=== PATIENT | female | born 1985 | race Caucasian/White ===

== ENCOUNTER 2017-04-25 08:49 | Inpatient (IN) | payer BC ==
[~2017-04-25] VITALS: Ht 165.1 cm; Wt 55.1 kg
[2017-04-25] MEDS ORDERED: ONDANSETRON INJ 2 MG/ML 2 ML VIAL IV STA (09:09)
[2017-04-25] MEDS ORDERED: HYDROmorphone INJ 1 MG/ML SYR IV STA (09:09)
[2017-04-25] MEDS ORDERED: SODIUM CHLORIDE 0.9% 1000ML 1,000 ML IV STA (09:10)
[2017-04-25] MEDS ORDERED: OPTIRAY 320 IV PRN (09:15)
[2017-04-25] MEDS ORDERED: AZAT50TA17 PO (09:21)
[2017-04-25] MEDS ORDERED: BCPILLS PO (09:21)
[2017-04-25 09:28] LABS: BASO % 0.1 %; BASO ABS # 0.02 K/uL (0-0.2); EOS % 0.1 %; EOS ABS # 0.02 K/uL (0-0.5); HEMATOCRIT 36.9 % (37-47); HEMOGLOBIN 12.5 g/dL (12.0-16.0); IG# 0.09 K/uL (0.00-0.02); LYMPH % 2.1 %; LYMPH ABS # 0.41 K/uL (1.2-3.4); MEAN CELL VOLUME 84.8 fL (80-100); MEAN CORPUSCULAR HEMOGLOBIN 28.7 pg (25-34); MEAN CORPUSCULAR HGB CONC 33.9 g/dl (32-36); MEAN PLATELET VOLUME 8.4 fL (7.4-10.4); MONO % 5.5 %; NEUT % 91.7 %; NEUT ABS # 18.27 K/uL (1.4-6.5); PLATELET COUNT 421 K/uL (130-400); RED CELL DISTRIBUTION WIDTH CV 13.5 % (11.5-14.5); RED CELL DISTRIBUTION WIDTH SD 41.4 fL (36.4-46.3); WHITE BLOOD COUNT 19.91 K/uL (4.8-10.8)
--- NOTE | 2017-04-25 09:37 | DIAGNOSTIC IMAGING REPORT ---
CHEST ONE VIEW PORTABLE CLINICAL HISTORY: Pt c/o diffuse abd pain pain COMPARISON STUDY: No previous studies for comparison. FINDINGS: The bones soft tissues and hemidiaphragms are normal. The cardiomediastinal silhouette is normal. The lungs are clear. The pulmonary vasculature is normal. IMPRESSION: Negative chest. The above report was generated using voice recognition software. It may contain grammatical, syntax or spelling errors. Electronically signed by: Boogie De Jesus M.D. 04/25/2017 9:36 AM Dictated Date/Time: 04/25/2017 9:35 AM
[2017-04-25 09:58] LABS: ALBUMIN 3.1 gm/dl (3.4-5.0); CALCIUM 8.9 mg/dl (8.5-10.1); CREATININE 0.72 mg/dl (0.60-1.20); POTASSIUM 3.4 mmol/L (3.5-5.1); TOTAL PROTEIN 8.4 gm/dl (6.4-8.2)
--- NOTE | 2017-04-25 12:16 | DIAGNOSTIC IMAGING REPORT ---
CT SCAN OF THE ABDOMEN AND PELVIS WITH IV CONTRAST CLINICAL HISTORY: Generalized abdominal pain. Reported history of Crohn's disease. COMPARISON STUDY: No priors. TECHNIQUE: Following the IV administration of 94 cc of Optiray 320, CT scan of the abdomen and pelvis is performed from the lung bases to the proximal femora. Images are reviewed in the axial, sagittal, and coronal planes. IV contrast was administered without complication. A dose lowering technique was utilized adhering to the principles of ALARA. CT DOSE: 294.02 mGy.cm FINDINGS: Lung bases: The heart is normal in size and without pericardial effusion. There are trace pleural effusions and dependent atelectasis. Liver: The contrast-enhanced liver is enlarged, measuring 23.8 cm in length. The liver is normal in contour and attenuation. Periportal edema is noted. There is no intrahepatic biliary ductal dilatation. The hepatic veins and portal veins are patent. Gallbladder: Unremarkable. Spleen: Normal in size and attenuation. Pancreas: Unremarkable. Adrenal glands: Unremarkable. Kidneys: The contrast enhanced kidneys are normal in size and without hydronephrosis. The kidneys enhance symmetrically. A 9 mm cortical hypodensity in the left kidney likely represents a cyst but is too small for definitive characterization. Abdominal vasculature: The abdominal aorta is normal in course and caliber. Bowel: Extensive inflammatory change is identified in the right lower quadrant. There is wall thickening and edema with surrounding inflammation identified involving the distal/terminal ileum as well as involving the adjacent cecum. This is best seen on image #329. The care is most suggestive of active Crohn's disease. There is an abnormal tract seen extending from the ileocecal junction to an adjacent loop of small bowel on axial image #306. 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 Wall thickening/inflammatory change is also seen involving additional small bowel loops in the right lower quadrant. There is moderate colonic fecal retention. No bowel obstruction is seen. The appendix is identified on axial image #337. The appendix appears mildly distended and fluid-filled, with thickening and hyperemia of the appendiceal wall. The appendix measures up to 9 mm. This is likely related to the adjacent inflammatory process in the cecum. No clear evidence of abscess is identified. Peritoneum: There is no intraperitoneal free air or abdominal ascites. There is a small fat-containing umbilical hernia. Lymphadenopathy: Enlarged mesenteric lymph nodes in the right lower quadrant measure up to 10 mm in short axis and are likely related to inflammation. Pelvic viscera: The bladder, uterus, and adnexa are normal as visualized. Small ovarian follicles are noted. There is a small volume of free fluid in the cul-de-sac. Skeletal structures: No lytic or blastic lesions are seen. IMPRESSION: 1. There is significant inflammatory change identified in the right lower quadrant, which appear to center around the terminal ileum and ileocecal junction. This likely represents active Crohn's disease given the patient's reported clinical history. 2. 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 3. No intraperitoneal free air or abscess is clearly identified. 4. Inflammatory change is also identified involving adjacent loops of small bowel in the right lower quadrant as well as the appendix. 5. There is a small volume of free fluid in the cul-de-sac. 6. No bowel obstruction is seen. 7. Hepatomegaly. 8. Trace pleural effusions. Findings were discussed with Dr. Rodriguez in the emergency department at the time of interpretation. Electronically signed by: Rudy Mccollum M.D. 04/25/2017 12:15 PM Dictated Date/Time: 04/25/2017 11:59 AM
[2017-04-25] MEDS ORDERED: METOCLOPRAMIDE HCL INJ 5 MG/ML 2 ML VIAL IV STA (12:50)
[2017-04-25] MEDS ORDERED: MoRPHine SULFATE 4 MG/ML 1 ML CARP\\VIAL IV STA (12:50)
[2017-04-25] MEDS ORDERED: METHYLPREDNISOLONE 125 MG VIAL IV STA (13:09)
[2017-04-25] MEDS ORDERED: POTASSIUM CHLORIDE 20 MEQ/15 ML UDC PO STA (13:09)
[2017-04-25] MEDS ORDERED: CEFTRIAXONE SOD INJ 1 GM ADDVIAL IV STA (13:09)
[2017-04-25] MEDS ORDERED: DAPTOmycin IV 330 MG in SODIUM CHLORIDE 0.9% 50ML 50 ML IV STA (13:09)
--- NOTE | 2017-04-25 14:08 | EMERGENCY ROOM VISIT NOTE ---
History Report prepared by Derik: Jones Buitrago Under the Supervision of: Dr. Lamin Rodriguez M.D. First contact with patient: 09:03 Chief Complaint: ABDOMINAL PAIN Stated Complaint: STOMACH PAIN Nursing Triage Summary: Pt states, "I had an emergency procedure last week with Dr. Rodrigez. He basically did a colonoscopy without the prep. He thinks I am having a flare because he doesn't know because he couldn't get up higher. I am on steroids so the pain had gone away and it came back yesterday." Upper abd pain since last week. Denies n/v/d/c. Hx of Crohn's. History of Present Illness The patient is a 32 year old female who presents to the Emergency Room with complaints of epigastric abdominal pain beginning a few days ago. The patient describes her pain as a "constant uneasiness". She has a history of Crohn's disease. She states that she has had GI bleeding for the past two months which worsened last week prompting an emergent procedure. The patient states that her current abdominal pain feels similar to pain she was experiencing prior to the procedure, except that her pain was previously intermittent. She was prescribed Prednisone following the procedure. She took two doses of Prednisone this morning. Source of History: patient Onset: A few days ago Position: abdomen (epigastric) Quality: other ("uneasiness") Timing: constant Note: Additional symptoms: GI bleeding. Review of Systems See HPI for pertinent positives & negatives. A total of 10 systems reviewed and were otherwise negative. Past Medical & Surgical Medical Problems: (1) Crohn's disease (2) Crohn's disease involving terminal ileum Family History No pertinent family history stated. Social History Smoking Status: Never Smoker Current/Historical Medications Scheduled Azathioprine (Imuran), 100 MG PO DAILY Control Pills ( Control Pills), 1 TAB PO DAILY Allergies Coded Allergies: Amoxicillin (Verified Allergy, Unknown, ., 04/25/17) Cefaclor (Verified Allergy, Unknown, ., 04/25/17) Clavulanic Acid (Verified Allergy, Unknown, ., 04/25/17) Sulfamethoxazole w/Trimethoprim (Verified Allergy, Unknown, ., 04/25/17) Physical Exam Vital Signs Date Time Temp Pulse Resp B/P (MAP) Pulse Ox O2 Delivery O2 Flow Rate FiO2 04/25/17 15:15 75 17 106/63 97 Room Air 04/25/17 12:55 78 18 102/61 96 Room Air 04/25/17 11:00 86 18 102/59 97 Room Air 04/25/17 09:45 99 04/25/17 08:53 36.8 120 18 135/82 96 Room Air Physical Exam GENERAL: Awake, alert, well-appearing, in no acute distress HENT: Normocephalic, atraumatic. Oropharynx unremarkable. EYES: Normal conjunctiva. Sclera non-icteric. NECK: Supple. No nuchal rigidity. FROM. No JVD. RESPIRATORY: Clear to auscultation. CARDIAC: Regular rate, normal rhythm. Extremities warm and well perfused. Pulses equal. ABDOMEN: Soft, non-distended. Diffusely tender to palpation. No rebound or guarding. No masses. RECTAL: Deferred. MUSCULOSKELETAL: Chest examination reveals no tenderness. The back is symmetrical on inspection without obvious abnormality. There is no CVA tenderness to palpation. No joint edema. LOWER EXTREMITIES: Calves are equal size bilaterally and non-tender. No edema. No discoloration. NEURO: Normal sensorium. No sensory or motor deficits noted. SKIN: No rash or jaundice noted. Medical Decision & Procedures ER Provider Diagnostic Interpretation: Radiology results as stated below per my review and radiologist interpretation: CT SCAN OF THE ABDOMEN AND PELVIS WITH IV CONTRAST FINDINGS: Lung bases: The heart is normal in size and without pericardial effusion. There are trace pleural effusions and dependent atelectasis. Liver: The contrast-enhanced liver is enlarged, measuring 23.8 cm in length. The liver is normal in contour and attenuation. Periportal edema is noted. There is no intrahepatic biliary ductal dilatation. The hepatic veins and portal veins are patent. Gallbladder: Unremarkable. Spleen: Normal in size and attenuation. Pancreas: Unremarkable. Adrenal glands: Unremarkable. Kidneys: The contrast enhanced kidneys are normal in size and without hydronephrosis. The kidneys enhance symmetrically. A 9 mm cortical hypodensity in the left kidney likely represents a cyst but is too small for definitive characterization. Abdominal vasculature: The abdominal aorta is normal in course and caliber. Bowel: Extensive inflammatory change is identified in the right lower quadrant. There is wall thickening and edema with surrounding inflammation identified involving the distal/terminal ileum as well as involving the adjacent cecum. This is best seen on image #329. The care is most suggestive of active Crohn's disease. There is an abnormal tract seen extending from the ileocecal junction to an adjacent loop of small bowel on axial image #306. 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 Wall thickening/inflammatory change is also seen involving additional small bowel loops in the right lower quadrant. There is moderate colonic fecal retention. No bowel obstruction is seen. The appendix is identified on axial image #337. The appendix appears mildly distended and fluid-filled, with thickening and hyperemia of the appendiceal wall. The appendix measures up to 9 mm. This is likely related to the adjacent inflammatory process in the cecum. No clear evidence of abscess is identified. Peritoneum: There is no intraperitoneal free air or abdominal ascites. There is a small fat-containing umbilical hernia. Lymphadenopathy: Enlarged mesenteric lymph nodes in the right lower quadrant measure up to 10 mm in short axis and are likely related to inflammation. Pelvic viscera: The bladder, uterus, and adnexa are normal as visualized. Small ovarian follicles are noted. There is a small volume of free fluid in the cul-de-sac. Skeletal structures: No lytic or blastic lesions are seen. IMPRESSION: 1. There is significant inflammatory change identified in the right lower quadrant, which appear to center around the terminal ileum and ileocecal junction. This likely represents active Crohn's disease given the patient's reported clinical history. 2. 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 3. No intraperitoneal free air or abscess is clearly identified. 4. Inflammatory change is also identified involving adjacent loops of small bowel in the right lower quadrant as well as the appendix. 5. There is a small volume of free fluid in the cul-de-sac. 6. No bowel obstruction is seen. 7. Hepatomegaly. 8. Trace pleural effusions. Findings were discussed with Dr. Rodriguez in the emergency department at the time of interpretation. Electronically signed by: Rudy Mccollum M.D. 04/25/2017 12:15 PM CHEST ONE VIEW PORTABLE FINDINGS: The bones soft tissues and hemidiaphragms are normal. The cardiomediastinal silhouette is normal. The lungs are clear. The pulmonary vasculature is normal. IMPRESSION: Negative chest. The above report was generated using voice recognition software. It may contain grammatical, syntax or spelling errors. Electronically signed by: Boogie De Jesus M.D. 04/25/2017 9:36 AM Laboratory Results 04/25/17 09:16 Red Blood Count 4.35, Mean Corpuscular Volume 84.8, Mean Corpuscular Hemoglobin 28.7, Mean Corpuscular Hemoglobin Concent 33.9, Mean Platelet Volume 8.4, Neutrophils (%) (Auto) 91.7, Lymphocytes (%) (Auto) 2.1, Monocytes (%) (Auto) 5.5, Eosinophils (%) (Auto) 0.1, Basophils (%) (Auto) 0.1, Neutrophils # (Auto) 18.27, Lymphocytes # (Auto) 0.41, Monocytes # (Auto) 1.10, Eosinophils # (Auto) 0.02, Basophils # (Auto) 0.02 04/25/17 09:16 Test 04/25/17 09:16 White Blood Count 19.91 K/uL (4.8-10.8) Red Blood Count 4.35 M/uL (4.2-5.4) Hemoglobin 12.5 g/dL (12.0-16.0) Hematocrit 36.9 % (37-47) Mean Corpuscular Volume 84.8 fL (80-100) Mean Corpuscular Hemoglobin 28.7 pg (25-34) Mean Corpuscular Hemoglobin Concent 33.9 g/dl (32-36) Platelet Count 421 K/uL (130-400) Mean Platelet Volume 8.4 fL (7.4-10.4) Neutrophils (%) (Auto) 91.7 % Lymphocytes (%) (Auto) 2.1 % Monocytes (%) (Auto) 5.5 % Eosinophils (%) (Auto) 0.1 % Basophils (%) (Auto) 0.1 % Neutrophils # (Auto) 18.27 K/uL (1.4-6.5) Lymphocytes # (Auto) 0.41 K/uL (1.2-3.4) Monocytes # (Auto) 1.10 K/uL (0.11-0.59) Eosinophils # (Auto) 0.02 K/uL (0-0.5) Basophils # (Auto) 0.02 K/uL (0-0.2) RDW Standard Deviation 41.4 fL (36.4-46.3) RDW Coefficient of Variation 13.5 % (11.5-14.5) Immature Granulocyte % (Auto) 0.5 % Immature Granulocyte # (Auto) 0.09 K/uL (0.00-0.02) Erythrocyte Sedimentation Rate 56 mm/hr (0-21) Anion Gap 6.0 mmol/L (3-11) Est Creatinine Clear Calc Drug Dose 96.7 ml/min Estimated GFR () 127.5 Estimated GFR (Non- 110.0 BUN/Creatinine Ratio 14.5 (10-20) Calcium Level 8.9 mg/dl (8.5-10.1) Total Bilirubin 0.7 mg/dl (0.2-1) Direct Bilirubin 0.2 mg/dl (0-0.2) Aspartate Amino Transf (AST/SGOT) 57 U/L (15-37) Alanine Aminotransferase (ALT/SGPT) 142 U/L (12-78) Alkaline Phosphatase 103 U/L (45-117) C-Reactive Protein 10.90 mg/dl (0-0.29) Total Protein 8.4 gm/dl (6.4-8.2) Albumin 3.1 gm/dl (3.4-5.0) Lipase 91 U/L (73-393) Labs reviewed by ED physician. Medications Administered Medications (Trade) Dose Ordered Sig/Seth Route Start Time Stop Time Status Last Admin Dose Admin Hydromorphone HCl (Dilaudid Inj) 1 mg NOW STAT IV 04/25/17 09:09 04/25/17 09:11 DC 04/25/17 09:34 1 MG Ondansetron HCl (Zofran Inj) 4 mg NOW STAT IV 04/25/17 09:09 04/25/17 09:11 DC 04/25/17 09:34 4 MG Sodium Chloride 1,000 ml @ 999 mls/hr Q1H1M STAT IV 04/25/17 09:10 04/25/17 10:10 DC 04/25/17 09:34 999 MLS/HR Morphine Sulfate (MoRPHine SULFATE INJ) 4 mg NOW STAT IV 04/25/17 12:50 04/25/17 12:51 DC 04/25/17 13:35 4 MG Metoclopramide HCl (Reglan Inj) 10 mg NOW STAT IV 04/25/17 12:50 04/25/17 12:51 DC 04/25/17 13:35 10 MG Potassium Chloride (Nicole Ciel Elix) 40 meq NOW STAT PO 04/25/17 13:09 04/25/17 13:12 DC 04/25/17 15:17 40 MEQ Ceftriaxone Sodium (Rocephin Inj) 1 gm NOW STAT IV 04/25/17 13:09 04/25/17 13:12 DC 04/25/17 13:36 1 GM Daptomycin 330 mg/ Sodium Chloride 56.6 ml @ 100 mls/hr NOW STAT IV 04/25/17 13:09 04/25/17 13:42 DC 04/25/17 13:36 100 MLS/HR Methylprednisolone Sodium Succinate (Solu-Medrol IV) 125 mg NOW STAT IV 04/25/17 13:09 04/25/17 13:12 DC 04/25/17 13:35 125 MG ED Course 0905: Past medical records reviewed. The patient was evaluated in room B9. A complete history and physical examination was performed. 0909: Ordered Zofran Inj 4 mg IV, Dilaudid Inj 1 mg IV. 0910: Ordered Sodium Chloride 1000 ml @ 999 mls/hr IV. 1250: Ordered Reglan Inj 10 mg IV, Morphine Sulfate 4 mg IV. 1309: Ordered Solu-Medrol 125 mg IV, Daptomycin 330 mg/Sodium Chloride 56.6 ml @ 100 mls/hr IV, Rocephin Inj 1 gm IV, Nicole Ciel Elix 40 meq PO. 1340: Upon reexamination the patient is resting comfortably. I discussed results and treatment plan with the patient. She verbalizes agreement and understanding. I spoke with Dr. Maradiaga from the [facility] Hospitalist Service. The patient will be evaluated for further management. Medical Decision Differential diagnosis: Etiologies such as Crohn's flare, appendicitis, diverticulitis, PUD, biliary pathology, UTI, pancreatitis, obstruction, mesenteric ischemia, aortic pathology , infections, inflammatory bowel disease, renal colic, as well as others were entertained. This is a 32-year-old female who presents the emergency department complaining of abdominal pain. The patient was sent in by her deposit refund clerk with request for CAT scan with IV and oral contrast. The patient was given Dilaudid here in the emergency department. She does have a large elevation in her white blood cell count which I suspect is related to her use of prednisone. Her CAT scan is concerning for a Crohn's flare so I did discuss the case with the deposit refund clerk who asked that the patient be admitted to the medicine service. Medication Reconcilliation Current Medication List: was personally reviewed by me Blood Pressure Screening Patient's blood pressure: Normal blood pressure Blood pressure disposition: Did not require urgent referral Consults Time Called: 1213 Consulting Physician: Dr. Marcelino - GI Returned Call: [phone] I discussed the patient's case with Dr. Marcelino. He recommends medical admission to the hospital. Additional Consults: Time Called: 1315 Consulted Physician: Dr. Maradiaga - [facility] Hospitalist Returned Call: [phone] Additional Comments: I discussed the patient's case with Dr. Maradiaga, he has agreed to evaluate the patient for further management and care. Impression Primary Impression: Exacerbation of Crohn's disease Scribe Attestation The scribe's documentation has been prepared under my direction and personally reviewed by me in its entirety. I confirm that the note above accurately reflects all work, treatment, procedures, and medical decision making performed by me. Departure Information Dispostion Being Evaluated By Hospitalist Referrals Yusef Rodrigez M.D. (PCP) Patient Instructions My [facility] Problem Qualifiers Primary Impression: Exacerbation of Crohn's disease Digestive disease complication type: without complication Qualified Codes: K50.90 - Crohn's disease, unspecified, without complications
[2017-04-25] MEDS ORDERED: ALUMINUM/MAGNESIUM/SIMETH (MAALOX MAX) 30 ML UDC PO PRN (15:45)
[2017-04-25] MEDS ORDERED: MAGNESIUM HYDROXIDE SUSP 30 ML UDC PO PRN (15:45)
[2017-04-25] MEDS ORDERED: ONDANSETRON INJ 2 MG/ML 2 ML VIAL IV PRN (15:45)
[2017-04-25] MEDS ORDERED: GI COCKTAIL PO ONE (15:45)
[2017-04-25 15:52] VITALS: O2SAT 97; BMI 20.2
[2017-04-25] MEDS ORDERED: MoRPHine SULFATE 2 MG/ML CARP IV PRN (16:00)
[2017-04-25 16:25] VITALS: BP 112/69; PULSE 57; TEMP 37; O2SAT 97
[2017-04-25 16:30] VITALS: PULSE 60
--- NOTE | 2017-04-25 16:42 | History and Physical ---
History & Physical Date & Time of Service: Apr 25, 2017 at 16:08 Chief Complaint: Stomach Pain Primary Care Physician: Yusef Rodrigez M.D. History of Present Illness Source: patient This is a 32-year-old female that was diagnosed with Crohn's disease in 2006. She follows with Dr. Yusef Rodrigez from the [facility]. She was last seen by him last for colonoscopy due to acute pain. At that time he prescribed 20 mg of prednisone daily and plan on changing her from Humira to Stelara. Her first injection of Stelara was to occur this at 2:30 PM. She has been on prednisone tapers in the past for acute flareups with variable results. 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 Generally her pain is in the area of the fistula but over the last 2 weeks pain has been midepigastric. She does have chronic, daily melena/ hematochezia so she is unable to quantify the amount of new or old blood. She indicates that since Monday pain has been increasing since about 4 AM. She did have relief of pain after eating last night, but pain returned. Although on prednisone she is not taking a PPI or H2 edouard. She denies history of EGD, peptic ulcer disease, gastritis. She denies taking any NSAIDs or ibuprofen for pain. She reports that she called Dr. Rodrigez's office regarding her pain and was instructed to come to the emergency department if there was no relief. 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[email or web address]) Immunizations History of Influenza Vaccine: Unknown History of Tetanus Vaccine?: Unknown History of Pneumococcal: Unknown History of Hepatitis B Vaccine: Unknown Allergies Coded Allergies: Amoxicillin (Verified Allergy, Unknown, ., 04/25/17) Cefaclor (Verified Allergy, Unknown, ., 04/25/17) Clavulanic Acid (Verified Allergy, Unknown, ., 04/25/17) Sulfamethoxazole w/Trimethoprim (Verified Allergy, Unknown, ., 04/25/17) Home Medications Scheduled Azathioprine (Imuran), 100 MG PO DAILY Control Pills ( Control Pills), 1 TAB PO DAILY Review of Systems A total of 12 systems was reviewed and is negative other than as listed above in the HPI Physical Exam Vital Signs Date Time Temp Pulse Resp B/P (MAP) Pulse Ox O2 Delivery O2 Flow Rate FiO2 04/25/17 15:52 97 Room Air 04/25/17 15:15 75 17 106/63 97 Room Air 04/25/17 12:55 78 18 102/61 96 Room Air 04/25/17 11:00 86 18 102/59 97 Room Air 04/25/17 09:45 99 04/25/17 08:53 36.8 120 18 135/82 96 Room Air GENERAL : Minimal distress, anxious EYES: No icterus, gaze conjugate NOSE: No evidence of epistaxis MOUTH: No lesions or candidiasis NECK: Supple LUNGS: CTA B/L, no wheezes, rales or rhonchi HEART: Regular, rate controlled ABDOMEN: Tender to palpation over the right lower quadrant and in the mid epigastric region. Bowel sounds are present and hyperactive. Tympanic to percussion. EXTREMITIES: No LE edema, pedal pulses intact NEURO: [facility] Laboratory Results Results Past 24 Hours Test 04/25/17 09:16 Range/Units White Blood Count 19.91 4.8-10.8 K/uL Red Blood Count 4.35 4.2-5.4 M/uL Hemoglobin 12.5 12.0-16.0 g/dL Hematocrit 36.9 37-47 % Mean Corpuscular Volume 84.8 80-100 fL Mean Corpuscular Hemoglobin 28.7 25-34 pg Mean Corpuscular Hemoglobin Concent 33.9 32-36 g/dl Platelet Count 421 130-400 K/uL Mean Platelet Volume 8.4 7.4-10.4 fL Neutrophils (%) (Auto) 91.7 % Lymphocytes (%) (Auto) 2.1 % Monocytes (%) (Auto) 5.5 % Eosinophils (%) (Auto) 0.1 % Basophils (%) (Auto) 0.1 % Neutrophils # (Auto) 18.27 1.4-6.5 K/uL Lymphocytes # (Auto) 0.41 1.2-3.4 K/uL Monocytes # (Auto) 1.10 0.11-0.59 K/uL Eosinophils # (Auto) 0.02 0-0.5 K/uL Basophils # (Auto) 0.02 0-0.2 K/uL RDW Standard Deviation 41.4 36.4-46.3 fL RDW Coefficient of Variation 13.5 11.5-14.5 % Immature Granulocyte % (Auto) 0.5 % Immature Granulocyte # (Auto) 0.09 0.00-0.02 K/uL Erythrocyte Sedimentation Rate 56 0-21 mm/hr Sodium Level 136 136-145 mmol/L Potassium Level 3.4 3.5-5.1 mmol/L Chloride Level 104 98-107 mmol/L Carbon Dioxide Level 26 21-32 mmol/L Anion Gap 6.0 3-11 mmol/L Blood Urea Nitrogen 11 7-18 mg/dl Creatinine 0.72 0.60-1.20 mg/dl Est Creatinine Clear Calc Drug Dose 96.7 ml/min Estimated GFR () 127.5 Estimated GFR (Non- 110.0 BUN/Creatinine Ratio 14.5 10-20 Random Glucose 112 70-99 mg/dl Calcium Level 8.9 8.5-10.1 mg/dl Total Bilirubin 0.7 0.2-1 mg/dl Direct Bilirubin 0.2 0-0.2 mg/dl Aspartate Amino Transf (AST/SGOT) 57 15-37 U/L Alanine Aminotransferase (ALT/SGPT) 142 12-78 U/L Alkaline Phosphatase 103 45-117 U/L C-Reactive Protein 10.90 0-0.29 mg/dl Total Protein 8.4 6.4-8.2 gm/dl Albumin 3.1 3.4-5.0 gm/dl Lipase 91 73-393 U/L Diagnostic Radiology CT SCAN OF THE ABDOMEN AND PELVIS WITH IV CONTRAST CLINICAL HISTORY: Generalized abdominal pain. Reported history of Crohn's disease. COMPARISON STUDY: No priors. TECHNIQUE: Following the IV administration of 94 cc of Optiray 320, CT scan of the abdomen and pelvis is performed from the lung bases to the proximal femora. Images are reviewed in the axial, sagittal, and coronal planes. IV contrast was administered without complication. A dose lowering technique was utilized adhering to the principles of ALARA. CT DOSE: 294.02 mGy.cm FINDINGS: Lung bases: The heart is normal in size and without pericardial effusion. There are trace pleural effusions and dependent atelectasis. Liver: The contrast-enhanced liver is enlarged, measuring 23.8 cm in length. The liver is normal in contour and attenuation. Periportal edema is noted. There is no intrahepatic biliary ductal dilatation. The hepatic veins and portal veins are patent. Gallbladder: Unremarkable. Spleen: Normal in size and attenuation. Pancreas: Unremarkable. Adrenal glands: Unremarkable. Kidneys: The contrast enhanced kidneys are normal in size and without hydronephrosis. The kidneys enhance symmetrically. A 9 mm cortical hypodensity in the left kidney likely represents a cyst but is too small for definitive characterization. Abdominal vasculature: The abdominal aorta is normal in course and caliber. Bowel: Extensive inflammatory change is identified in the right lower quadrant. There is wall thickening and edema with surrounding inflammation identified involving the distal/terminal ileum as well as involving the adjacent cecum. This is best seen on image #329. The care is most suggestive of active Crohn's disease. There is an abnormal tract seen extending from the ileocecal junction to an adjacent loop of small bowel on axial image #306. 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 Wall thickening/inflammatory change is also seen involving additional small bowel loops in the right lower quadrant. There is moderate colonic fecal retention. No bowel obstruction is seen. The appendix is identified on axial image #337. The appendix appears mildly distended and fluid-filled, with thickening and hyperemia of the appendiceal wall. The appendix measures up to 9 mm. This is likely related to the adjacent inflammatory process in the cecum. No clear evidence of abscess is identified. Peritoneum: There is no intraperitoneal free air or abdominal ascites. There is a small fat-containing umbilical hernia. Lymphadenopathy: Enlarged mesenteric lymph nodes in the right lower quadrant measure up to 10 mm in short axis and are likely related to inflammation. Pelvic viscera: The bladder, uterus, and adnexa are normal as visualized. Small ovarian follicles are noted. There is a small volume of free fluid in the cul-de-sac. Skeletal structures: No lytic or blastic lesions are seen. IMPRESSION: 1. There is significant inflammatory change identified in the right lower quadrant, which appear to center around the terminal ileum and ileocecal junction. This likely represents active Crohn's disease given the patient's reported clinical history. 2. 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 3. No intraperitoneal free air or abscess is clearly identified. 4. Inflammatory change is also identified involving adjacent loops of small bowel in the right lower quadrant as well as the appendix. 5. There is a small volume of free fluid in the cul-de-sac. 6. No bowel obstruction is seen. 7. Hepatomegaly. 8. Trace pleural effusions. Findings were discussed with Dr. Rodriguez in the emergency department at the time of interpretation. Electronically signed by: Rudy Mccollum M.D. 04/25/2017 12:15 PM CHEST ONE VIEW PORTABLE CLINICAL HISTORY: Pt c/o diffuse abd pain pain COMPARISON STUDY: No previous studies for comparison. FINDINGS: The bones soft tissues and hemidiaphragms are normal. The cardiomediastinal silhouette is normal. The lungs are clear. The pulmonary vasculature is normal. IMPRESSION: Negative chest. The above report was generated using voice recognition software. It may contain grammatical, syntax or spelling errors. Electronically signed by: Boogie De Jesus M.D. 04/25/2017 9:36 AM Impression Assessment and Plan ABDOMINAL PAIN * Acute Crohn's flare * Started prednisone oral last per her thaw shed heater tender * Chronic use of Imuran 50 mg p.o. daily * Scheduled to start Stelara this * No prophylactic PPI or H2 edouard since starting prednisone * concern for gastritis/ulcer * Pantoprazole 40 mg IV every 12 hours * gastroenterology consult * Check beta hCG, mag, phos, INR, aPTT * Further management per GI ELEVATED LFTS * Normal bilirubin * Intrinsic disease * No hx of EtOH abuse * No known risk for hepatitis other than immunosuppression * Follow serial labs * Further management per GI LEUKOCYTOSIS * No fever, chills, nausea, vomiting, watery diarrhea * On oral prednisone * Check urine culture * Follow serial labs ELEVATED ESR/CRP * Most likely from inflammation from acute Crohn's flare ELECTROLYTE IMBALANCE * Oral repletion of potassium in ED * IVF with NSS with 20 mEq KCl * Check Magnesium * Follow serial labs NONHEALING FISTULA * Secondary to Crohn's * Followed by GI * No erythema, bleeding or puss from fistula DVT PROPHYLAXIS * No chemical prophylaxis secondary to chronic melena * TEDs * SCDs This patient meets criteria for admission due to failed outpatient therapy, prednisone use, acute Crohn's flare, abdominal pain, leukocytosis Discussed with Dr. Mobley. Please refer to his addendum for further recommendations I personally interviewed and examined the patient. I agree with history of present illness and physical exam mentioned above, I also performed my own history taking and examination. Past medical history and review of system has been obtained by myself I reviewed all pertinent labs and studies Reviewed current medications I discussed and formulated of the assessment and plan mentioned above. Please refer to the Summary mentioned below. 52-year-old female with long history of Crohn's disease, recent flare up status post recent colonoscopy. Patient presented to the hospital with worsening symptoms, slight change in character of symptoms and location, her pain now is more localized in the epigastric area which could be part of her transverse colon versus she is developing gastritis. Patient was admitted for further evaluation and will be seen by GI. Also will be treated empirically for gastritis. General Appearance: not in acute distress Eyes: normal Sclerae, extraocular muscle intact ENT: hearing grossly normal Neck: supple Respiratory/Chest: normal air entry bilateral ,no respiratory distress, no accessory muscle use Cardiovascular: regular rate, rhythm, no murmur Abdomen: Severe abdominal pain/tenderness/distention Extremities: no edema Neurologic/Psychiatric: Awake alert oriented times place and person moves all extremities sensation intact cranial nerves II-12 appear to be intact Skin: normal color, warm/dry, no rash Wesam Moustafa Itz MD, [facility] Advanced Directives Existing Living Will: No Existing Power of Supervisor Air Conditioning Installer: No Resuscitation Status VTE Prophylaxis Will order VTE Prophylaxis: Yes Reason for no VTE drug order: Contraindicated
[2017-04-25 16:52] VITALS: O2SAT 97
[2017-04-25] MEDS ORDERED: ALUMINUM/MAGNESIUM SUSP 18 ML, LIDOCAINE HCL 2% VISCOUS SOLN 6 ML, BARCODE IDENTIFIER 1 EA PO ONE ×2 (17:00)
[2017-04-25] MEDS: NSS + 20MEQ KCL 1000ML 1,000 ML IV SCH (17:18)
[2017-04-25 17:23] LABS: PHOSPHORUS 2.2 mg/dl (2.5-4.9)
[2017-04-25] MEDS: PANTOprazole INJ 40 MG in SYRINGE 0 ML IV SCH (21:05)
[2017-04-25] MEDS: NORETHINDRONE PO SCH (21:53)
[2017-04-25] MEDS: ETHINYL ESTRAD PO SCH (21:53)
--- NOTE | 2017-04-25 22:44 | GASTROINTESTINAL CONSULTATION ---
DATE OF CONSULTATION: 04/25/2017 GASTROENTEROLOGY INPATIENT CONSULTATION NOTE CHIEF COMPLAINT: Leukocytosis, history of Crohn disease, abdominal pain, abnormal CT scan. HISTORY OF PRESENT ILLNESS: This is a 32-year-old white female for whom I was contacted through the Emergency Room for abnormal findings on the CT scan. The patient was seen as an add on by Dr. Rodrigez, last week in clinic and a CT scan was ordered. In addition, a dose of prednisone at 20 mg daily was started as an outpatient. The patient is historically on Humira, but reports that there are plans with approval to start Stelara. She also had a colonoscopy, although I do not currently have the reports of this study from last week by Dr. Rodrigez. The patient was initially diagnosed in 2006. A CT scan was performed in the Emergency Room, the patient was instructed to come to the Emergency Room by Dr. Rodrigez's office because of increasing abdominal pain. She is also on Imuran 100 mg daily. Historically, she was on Asacol initially, which eventually became ineffective had been on 3 courses of prednisone by her recollection with the most recent started last week. In addition to the Imuran which was started after her initiation of Humira, she describes there was a question that her Humira level was low and therefore for a period of time she was administering every 10 days instead of every 14 days. PAST MEDICAL HISTORY: Includes Crohn disease of the terminal ileum, perianal fistula and intermittent hematochezia. PAST SURGICAL HISTORY: She has had several colonoscopies in the past, although reports no surgeries for gastrointestinal purposes such as small bowel or colon resections, cholecystectomy or appendectomy. FAMILY HISTORY: Noncontributory. There is no reported history of inflammatory bowel disease or colorectal cancer. SOCIAL HISTORY: The patient denies tobacco use and never smoked in the past. 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 ALLERGIES: INCLUDE AMOXICILLIN, CEFACLOR, CLAVULANIC ACID AND BACTRIM. HOME MEDICATIONS: Include control pills and Imuran 100 mg daily in addition recently started prednisone 20 mg daily and Humira which was recently discontinued. She was also recently started on a vitamin D for a low level. CURRENT MEDICATIONS AN INPATIENT: Imuran 100 mg daily, methylprednisolone 125 mg daily, Junel (oral contraceptives), pantoprazole 40 mg twice daily, morphine, and Zofran. REVIEW OF SYSTEMS: Review of systems is otherwise noncontributory based on 13-point exam except for mentioned above. She denies any visual disturbances rashes, joint aches. PHYSICAL EXAMINATION: VITAL SIGNS: On admission - afebrile at 36.8, blood pressure 135/82, heart rate 120, respirations 18, and 96% on room air. GENERAL: The patient is awake, alert and oriented x3. She is resting comfortably in bed and did receive morphine for pain control. She reports that her menstrual cycle is regular on control. She is accompanied by her family and boyfriend. HEENT: Head is normocephalic, atraumatic. Sclerae are anicteric, conjunctivae moist. Oral mucosa moist. NECK: There is no cervical or supraclavicular adenopathy. I do not appreciate thyromegaly. Normal range of motion. HEART: Normal S1, S2. LUNGS: Clear to auscultation without rales, rhonchi or wheezes. ABDOMEN: Soft, mildly tender in the epigastrium and to a lesser extent in the right and periumbilical region without rebound or guarding. There are no abdominal bruits or masses. There are positive bowel sounds. EXTREMITIES: Without clubbing, cyanosis or edema. The extremities showed normal range of motion. SKIN: Warm, dry and intact. NEUROLOGIC: There are no focal neurologic deficits. LABORATORY STUDIES: On admission - white count of 19.9, hemoglobin 12.5, hematocrit 36.9, MCV 84, and platelets 421,000. BUN and creatinine are 11 and 0.72, potassium is slightly low at 3.4, normal sodium, calcium 8.9. Total and direct bilirubin 0.7/0.2. AST is elevated at 57, ALT is elevated at 142, alkaline phosphatase 103. C-reactive protein 10.9, lipase 91, total protein 8.4. IMAGING DATA: CT suggests extensive inflammatory changes in the right lower quadrant wall thickening involving the distal terminal ileum as well as the adjacent cecum, suggesting active Crohn disease in the ileocecal region. There is also an enteroenteric fistula identified from the ileocecal junction to an adjacent loop of bowel. Appendix is mildly distended and fluid filled and thickening of the wall. There is no free air or ascites. There are enlarged mesenteric lymph nodes in the right lower quadrant up to 10 mm. Pelvis is unremarkable. There are no lytic or bony lesions. Evidence of hepatomegaly noted. Chest x-ray was negative. IMPRESSION AND PLAN: Ms. Barnett is a 32-year-old white female with a known history of Crohn disease since 2006, continuously treated by Dr. Rodrigez. The disease, although I do not have the recent colonoscopy report, by CAT scan, there appears to be significant and ileocecal involvement as well as an enteroenteric fistula occurring from the small bowel to the ileocecal region. There is no fluid in the abdomen. There is also mild elevation in transaminases, ALT greater than AST of unclear significance, although the patient is on Imuran. I made the following recommendations: I will review the report of the outpatient colonoscopy tomorrow. Apparently, Stelara has been approved for administration on . Hopefully, the patient can either receive this as an inpatient or be discharged to permit initiation of therapy. At the present time, would continue her Imuran at the current dose, although I will reduce the methylprednisolone to 30 mg q. 12. Would check an iron profile and would resume vitamin D, oral 2000 international units daily. The source of the patient's transaminases are unclear, there is no suggestion of biliary dilatation on imaging study. The patient is on Imuran and this potentially could be a source of these. Therefore, I will obtain a 6-MMP and 6-TG level, to see if this dosing needs to be adjusted. The patient can maintain a clear liquid diet. All questions answered.
[2017-04-25 23:28] VITALS: BP 105/63; PULSE 65; TEMP 37; O2SAT 96
[2017-04-26 00:30] VITALS: O2SAT 97
[2017-04-26] MEDS: NSS + 20MEQ KCL 1000ML 1,000 ML IV SCH (05:54)
[2017-04-26 07:13] VITALS: BP 105/66; PULSE 69; TEMP 36.5; O2SAT 97
[2017-04-26 07:27] LABS: HEMATOCRIT 37.8 % (37-47); HEMOGLOBIN 12.5 g/dL (12.0-16.0); IG# 0.05 K/uL (0.00-0.02); LYMPH % 4.2 %; LYMPH ABS # 0.59 K/uL (1.2-3.4); MEAN CELL VOLUME 86.5 fL (80-100); MEAN CORPUSCULAR HEMOGLOBIN 28.6 pg (25-34); MEAN CORPUSCULAR HGB CONC 33.1 g/dl (32-36); MEAN PLATELET VOLUME 8.8 fL (7.4-10.4); MONO % 4.2 %; MONO ABS # 0.59 K/uL (0.11-0.59); NEUT % 91.2 %; NEUT ABS # 12.95 K/uL (1.4-6.5); PLATELET COUNT 451 K/uL (130-400); RED CELL DISTRIBUTION WIDTH CV 13.4 % (11.5-14.5); RED CELL DISTRIBUTION WIDTH SD 42.6 fL (36.4-46.3); WHITE BLOOD COUNT 14.18 K/uL (4.8-10.8)
[2017-04-26 07:57] LABS: ALBUMIN 2.9 gm/dl (3.4-5.0); CALCIUM 8.7 mg/dl (8.5-10.1); CREATININE 0.69 mg/dl (0.60-1.20)
[2017-04-26 08:00] LABS: TOTAL PROTEIN 8.2 gm/dl (6.4-8.2)
[2017-04-26] MEDS ORDERED: METHYLPREDNISOLONE IV 30 MG in SYRINGE 0 ML IV SCH (08:00)
[2017-04-26 08:14] LABS: POTASSIUM 4.1 mmol/L (3.5-5.1)
[2017-04-26 08:20] VITALS: O2SAT 97
[2017-04-26] MEDS: PANTOprazole INJ 40 MG in SYRINGE 0 ML IV SCH (08:33)
[2017-04-26] MEDS: AZATHIOPRINE 50 MG TAB PO SCH (08:34)
[2017-04-26] MEDS ORDERED: CHOLECALCIFEROL 1000 INTER.UNIT TAB PO SCH (09:00)
[2017-04-26] MEDS ORDERED: NORETHINDRONE PO SCH (09:00)
[2017-04-26] MEDS ORDERED: ETHINYL ESTRAD PO SCH (09:00)
[2017-04-26] MEDS ORDERED: METHYLPREDNISOLONE IV 40 MG in SYRINGE 0 ML IV SCH (09:00)
[2017-04-26] MEDS ORDERED: NURSING VERBAL MED ORDER ONE (09:30)
[2017-04-26] MEDS: CHOLECALCIFEROL 1000 INTER.UNIT TAB PO SCH (11:43)
[2017-04-26 12:55] VITALS: Ht 165.1 cm; Wt 55.1 kg
[2017-04-26 15:23] VITALS: BP 113/72; PULSE 62; TEMP 36.9; O2SAT 96
--- NOTE | 2017-04-26 16:01 | Progress Note ---
Subjective Date of Service: Apr 26, 2017. Subjective Pt evaluation today including: conversation w/ patient, physical exam, chart review, lab review, review of studies, conversation w/ animal nutrition consultant, review of inpatient medication list Pain: No PO Intake: Still n.p.o. Doing okay, no abdominal pain since yesterday afternoon, no nausea vomiting, no fever or chills, has had 2 bowel movement, small amount soft formed, report is her normal stool Problem List Medical Problems: (1) Exacerbation of Crohn's disease Status: Acute Review of Systems Constitutional: + weakness, + fatigue, No fever, No chills, No sweats, No weight loss, No problem reported Eyes: No worsening of vision, No eye pain, No redness, No discharge, No diplopia ENT: No hearing loss, No unusual epistaxis, No nasal symptoms, No sore throat, No tinnitus, No dental problems, No trouble swallowing Respiratory: No cough, No sputum, No wheezing, No shortness of breath, No dyspnea on exertion, No dyspnea at rest, No hemoptysis Cardiac: No chest pain, No orthopnea, No PND, No edema, No claudication, No palpitations Abdomen: + see HPI, No pain, No nausea, No vomiting, No diarrhea, No constipation Musculoskeletal: No joint pain, No muscle pain, No swelling, No calf pain Female : No dysuria, No urinary frequency, No hematuria, No incontinence, No abnormal vaginal bleeding, No vaginal discharge Neurologic: No memory loss, No paralysis, No weakness, No numbness/tingling, No vertigo, No balance problems Psychiatric: No depression symptoms, No anhedonism, No anxiety, No insomnia, No substance abuse Heme: No abnormal bleeding/bruising, No clotting problems, No swollen lymph nodes, No night sweats Endo: No fatigue, No excessive thirst, No excessive urination Skin: No rash, No itch, No new/changing skin lesions, No color change, No bleeding Objective Vital Signs Date Time Temp Pulse Resp B/P (MAP) Pulse Ox O2 Delivery O2 Flow Rate FiO2 04/26/17 15:23 36.9 62 16 113/72 (86) 96 Room Air 04/26/17 08:20 97 Room Air 04/26/17 07:13 36.5 69 22 105/66 (79) 97 04/26/17 00:30 97 Room Air 04/25/17 23:28 37.0 65 16 105/63 (77) 96 Room Air 04/25/17 16:52 97 Room Air 04/25/17 16:30 60 04/25/17 16:25 37.0 57 16 112/69 (83) 97 Room Air 04/25/17 16:06 75 17 106/63 97 Physical Exam General Appearance: WD/WN, no apparent distress, + thin Eyes: normal inspection, PERRL, EOMI, sclerae normal ENT: normal ENT inspection, hearing grossly normal, pharynx normal Neck: supple, no adenopathy, thyroid normal, no JVD, no carotid bruits, trachea midline Respiratory/Chest: chest non-tender, lungs clear, normal breath sounds, no respiratory distress, no accessory muscle use Cardiovascular: regular rate, rhythm, no edema, no gallop, no JVD, no murmur Abdomen: normal bowel sounds, non tender, soft, no organomegaly, no pulsatile mass Extremities: normal range of motion, non-tender, normal inspection, no pedal edema, no calf tenderness, normal capillary refill, pelvis stable Neurologic/Psychiatric: undercutter II-XII nml as tested, no motor/sensory deficits, alert, normal mood/affect, oriented x 3 Skin: normal color, warm/dry, no rash Lymphatic: no adenopathy Laboratory Results Last 24 Hours Test 04/25/17 16:36 04/25/17 16:40 04/26/17 07:13 Phosphorus Level 2.2 mg/dl Magnesium Level 2.3 mg/dl Folate 15.13 ng/mL Urine Color YELLOW Urine Appearance CLEAR Urine pH 6.5 Urine Specific [place] 1.010 Urine Protein NEG Urine Glucose (UA) NEG Urine Ketones NEG Urine Occult Blood TRACE Urine Nitrite NEG Urine Bilirubin NEG Urine Urobilinogen NEG Urine Leukocyte Esterase NEG Urine WBC (Auto) 0 /hpf Urine RBC (Auto) 0-4 /hpf Urine Hyaline Casts (Auto) 0 /lpf Urine Epithelial Cells (Auto) 10-20 /lpf Urine Bacteria (Auto) NEG White Blood Count 14.18 K/uL Red Blood Count 4.37 M/uL Hemoglobin 12.5 g/dL Hematocrit 37.8 % Mean Corpuscular Volume 86.5 fL Mean Corpuscular Hemoglobin 28.6 pg Mean Corpuscular Hemoglobin Concent 33.1 g/dl Platelet Count 451 K/uL Mean Platelet Volume 8.8 fL Neutrophils (%) (Auto) 91.2 % Lymphocytes (%) (Auto) 4.2 % Monocytes (%) (Auto) 4.2 % Eosinophils (%) (Auto) 0.0 % Basophils (%) (Auto) 0.0 % Neutrophils # (Auto) 12.95 K/uL Lymphocytes # (Auto) 0.59 K/uL Monocytes # (Auto) 0.59 K/uL Eosinophils # (Auto) 0.00 K/uL Basophils # (Auto) 0.00 K/uL RDW Standard Deviation 42.6 fL RDW Coefficient of Variation 13.4 % Immature Granulocyte % (Auto) 0.4 % Immature Granulocyte # (Auto) 0.05 K/uL Sodium Level 138 mmol/L Potassium Level 4.1 mmol/L Chloride Level 107 mmol/L Carbon Dioxide Level 25 mmol/L Anion Gap 6.0 mmol/L Blood Urea Nitrogen 7 mg/dl Creatinine 0.69 mg/dl Est Creatinine Clear Calc Drug Dose 100.9 ml/min Estimated GFR () 132.6 Estimated GFR (Non- 114.4 BUN/Creatinine Ratio 9.7 Random Glucose 111 mg/dl Calcium Level 8.7 mg/dl Iron Level 44 mcg/dl Total Iron Binding Capacity 315 mcg/dl Ferritin 103.8 ng/ml Total Bilirubin 0.5 mg/dl Aspartate Amino Transf (AST/SGOT) 49 U/L Alanine Aminotransferase (ALT/SGPT) 143 U/L Alkaline Phosphatase 101 U/L Total Protein 8.2 gm/dl Albumin 2.9 gm/dl Globulin 5.3 gm/dl Albumin/Globulin Ratio 0.5 Assessment and Plan 52-year-old female admitted on April 25, 2017 because of Crohn disease flaring, Crohn's disease flare up status post recent colonoscopy. 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 Hopefully, the patient can either receive this as an inpatient or be discharged to permit initiation of therapy. current dose of Imuran and methylprednisolone to 30 mg q. 12 is adjusted by GI will need to continue follow-up with GI, Possible discharge patient home tomorrow if tolerating diet and condition to be improving and stable Continued [facility] stay due to: multiple IV medications needed Discharge planning: home
--- NOTE | 2017-04-26 18:32 | GASTROENTEROLOGY PROGRESS NOTE ---
DATE: 04/26/2017 GASTROENTEROLOGY INPATIENT PROGRESS NOTE SUBJECTIVE: Chart reviewed, patient examined. The patient feeling better, has tolerated advancement of her diet today without difficulties. No nausea, vomiting, abdominal pain. She reports 2 bowel movements that are nonbloody and are of her usual consistency. There is no abdominal pain. She denies any fevers, shaking chills. LABORATORY STUDIES: Today show a decline in her white count of 14,000 from almost 20,000; hemoglobin stable at 12.5. Serum chemistry - BUN and creatinine are 7 and 0.7. ALT 143, AST 49, alkaline phosphatase 101. Folate 15, hCG was negative on admission. Iron studies show serum iron 44, TIBC 315, ferritin 103.8. REVIEW OF SYSTEMS: Otherwise noncontributory based on 13-point exam except for mentioned above. PHYSICAL EXAMINATION: GENERAL: The patient awake, alert and oriented x3, sitting in the bed comfortably. Visited by her family. HEENT: Oral mucosa moist. HEART: Normal S1, S2. LUNGS: Clear to auscultation without rales, rhonchi or wheeze. ABDOMEN: Soft, flat, nontender, nondistended, without rebound or guarding. EXTREMITIES: Without clubbing, cyanosis or edema. RECTAL: Deferred. IMPRESSION AND PLAN: Apparently, the patient informed me that Dr. Rodrigez had been up to see her today and discussed options for care, for which I was unaware. Either the patient would be discharged tomorrow with the intention of receiving her first Stelara infusion, or possibly transfer to [place] for consideration of surgery with Dr. Segovia. The patient reports that she would prefer not to have surgical and would like to consider medical therapy if this is an option. I was not aware of these options from Dr. Rodrigez who follows the patient and will attempt to discuss this with him. The 6-MMP and 6-TG level that was ordered by me last night was not yet collected and I asked the nurse to make sure that this was drawn either tonight or tomorrow before discharge, if this occurs. I will also check the [facility] records for her liver test patterns. All questions answered for the patient and her family. She should ambulate as tolerated. Continue to advance diet as tolerated. If the patient is to be discharged tomorrow, a plan outlined by Dr. Rodrigez will be recommended in the chart and follow up with him at his recommended interval. All of their questions were answered. MARVEL
[2017-04-26] MEDS: NORETHINDRONE PO SCH (20:48)
[2017-04-26] MEDS: ETHINYL ESTRAD PO SCH (20:48)
[2017-04-27 00:24] VITALS: BP 113/69; PULSE 58; TEMP 36.5; O2SAT 97
[2017-04-27] MEDS: AZATHIOPRINE 50 MG TAB PO SCH (08:22)
[2017-04-27 08:25] LABS: BASO % 0.1 %; BASO ABS # 0.01 K/uL (0-0.2); EOS % 0.2 %; EOS ABS # 0.03 K/uL (0-0.5); HEMATOCRIT 37.4 % (37-47); HEMOGLOBIN 12.4 g/dL (12.0-16.0); IG# 0.04 K/uL (0.00-0.02); LYMPH % 6.6 %; LYMPH ABS # 1.02 K/uL (1.2-3.4); MEAN CELL VOLUME 85.8 fL (80-100); MEAN CORPUSCULAR HEMOGLOBIN 28.4 pg (25-34); MEAN CORPUSCULAR HGB CONC 33.2 g/dl (32-36); MEAN PLATELET VOLUME 8.5 fL (7.4-10.4); MONO % 5.4 %; MONO ABS # 0.83 K/uL (0.11-0.59); NEUT % 87.4 %; NEUT ABS # 13.55 K/uL (1.4-6.5); PLATELET COUNT 431 K/uL (130-400); RED CELL DISTRIBUTION WIDTH CV 13.7 % (11.5-14.5); RED CELL DISTRIBUTION WIDTH SD 42.7 fL (36.4-46.3); WHITE BLOOD COUNT 15.48 K/uL (4.8-10.8)
[2017-04-27 08:26] VITALS: BP 101/64; PULSE 62; TEMP 36.5; O2SAT 98
[2017-04-27] MEDS ORDERED: PANTOprazole SOD 40 MG TAB PO SCH (09:00)
[2017-04-27 09:05] LABS: ALBUMIN 2.9 gm/dl (3.4-5.0); CALCIUM 9.1 mg/dl (8.5-10.1); CREATININE 0.86 mg/dl (0.60-1.20); POTASSIUM 3.7 mmol/L (3.5-5.1)
[2017-04-27 09:09] LABS: PHOSPHORUS 2.6 mg/dl (2.5-4.9); TOTAL PROTEIN 8.1 gm/dl (6.4-8.2)
[2017-04-27] MEDS ORDERED: VTMD1000 PO (10:43)
[2017-04-27] MEDS ORDERED: PRED20TA PO (10:43)
--- NOTE | 2017-04-27 10:47 | Discharge Instructions ---
Discharge Instructions Date of Service Apr 27, 2017. Admission Reason for Admission: Crohn's Disease Discharge Discharge Diagnosis / Problem: Crohn's disease flare up Discharge Goals Goal(s): Decrease discomfort, Improve function, Increase independence, Improve disease control, Improve nutritional status, Learn about illness, Diagnostic testing, Therapeutic intervention, Prevent Disease Progression, Specific goals Activity Recommendations Activity Limitations: resume your previous activity . Instructions / Follow-Up Instructions / Follow-Up you have Crohn's disease flare up I am giving you tapering dose of oral prednisone for total [address] Rodrigez, Stelara has been approved for will be administration on Today, you just need to have it as instructed. low residual diet - you need to follow up with your primary care physician in 1 week, - take medication as instructed, never overdose or any misuse, or take with alcohol, because misuse of medicine may cause organ damage or , call your primary care physician if have questions of medicaitons. - call your primary care physician OR go to local emergency room if has any fever/chill, chest pain, shortness of breathing, nausea/vomiting/abdominal pain , facial droop/slurry speech/local weakness, or if has any questions. - fall precaution - diet as instructed - you need to follow up with your subspecialist Current Hospital Diet Patient's current hospital diet: Regular Diet Discharge Diet Recommended Diet: Regular Diet Pending Studies Studies pending at discharge: yes List of pending studies: somd labs order by Dr. Marcelino, he will follow up them with you Medical Emergencies . Who to Call and When: Medical Emergencies: If at any time you feel your situation is an emergency, please call 911 immediately. . Non-Emergent Contact Non-Emergency issues call your: Primary Care Provider, Robotics Engineer . . "Provider Documentation" section prepared by Brent Angel. .
[2017-04-27 10:53] VITALS: BP 101/64; PULSE 62; TEMP 36.5; O2SAT 98
[2017-04-27] MEDS: CHOLECALCIFEROL 1000 INTER.UNIT TAB PO SCH (13:00)
--- NOTE | 2017-04-27 14:28 | Discharge Summary ---
Discharge Summary Date of Service Apr 27, 2017. Discharge Summary Admission Date: Apr 25, 2017 at 16:22 Discharge Date: Apr 27, 2017 Discharge Disposition: Home Principal Diagnosis: Crohn's disease flare up Problems/Secondary Diagnoses: Gastritis Immunizations: Have You Had Influenza Vaccine: Unknown History of Tetanus Vaccine?: Unknown History of Pneumococcal: Unknown History of Hepatitis B Vaccine: Unknown Procedures: No Consultations: GI consult Medication Reconciliation New Medications: Prednisone (Prednisone) 20 Mg Tab 0 PO DAILY for 14 Days, #15 2 TABS DAILY FOR 5 DAYS, THEN 1 TAB DAILY FOR 5 DAYS, THEN 1/2 TAB DAILY FOR 5 DAYS, then stop Cholecalciferol (Vitamin D3) 1,000 Inter.unit Tab 2000 INTER.UNIT PO DAILY@1200 for 30 Days, TAB Continued Medications: Azathioprine (Imuran) 50 Mg Tab 100 MG PO DAILY Control Pills ( Control Pills) Tab 1 TAB PO DAILY Discharge Exam Doing good, tolerating diet, no abdominal pain, no diarrhea constipation, normal stool soft and formed, no blood Review of Systems: Constitutional: No fever, No chills, No sweats, No weight loss, No weakness , No fatigue, No problem reported Eyes: No worsening of vision, No eye pain, No redness, No discharge, No diplopia, No problem reported ENT: No hearing loss, No unusual epistaxis, No nasal symptoms, No sore throat, No tinnitus, No dental problems, No trouble swallowing, No problem reported Respiratory: No cough, No sputum, No wheezing, No shortness of breath, No dyspnea on exertion, No dyspnea at rest, No hemoptysis, No problem reported Cardiovascular: No chest pain, No orthopnea, No PND, No edema, No claudication, No palpitations, No problem reported Abdomen: No pain, No nausea, No vomiting, No diarrhea, No constipation, No GI bleeding, No problem reported Musculoskeletal: No joint pain, No muscle pain, No swelling, No calf pain, No problem reported Genitourinary - Female: No dysuria, No urinary frequency, No urinary urgency , No urinary incontinence, No urinary retention, No hematuria, No dysmenorrhea, No menorrhagia, No metrorrhagia, No rash, No vaginal bleeding, No vaginal discharge, No vaginal itching, No vulvodynia, No , No problem reported Neurologic: No memory loss, No paralysis, No weakness, No numbness/tingling , No vertigo, No balance problems, No problem reported Psychiatric: No depression symptoms, No anhedonism, No anxiety, No insomnia , No substance abuse, No problem reported Endocrine: No fatigue, No excessive thirst, No excessive urination, No problem reported Hematologic / Lymphatic: No abnormal bleeding/bruising, No clotting problems , No swollen lymph nodes, No night sweats, No problem reported Integumentary: No rash, No itch, No new/changing skin lesions, No color change, No bleeding, No problem reported Physical Exam: General Appearance: WD/WN, no apparent distress Eyes: normal inspection, PERRL ENT: normal ENT inspection, hearing grossly normal Neck: supple, no adenopathy Respiratory/Chest: chest non-tender, lungs clear, normal breath sounds Cardiovascular: regular rate, rhythm, no edema, no gallop, no JVD Abdomen / GI: normal bowel sounds, non tender, soft, no organomegaly, no pulsatile mass Extremities: normal inspection, no calf tenderness, normal capillary refill , no pedal edema Neurologic/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 12 , GI will have a tapering dose of oral prednisone to home will need to continue follow-up with GI, per Bambi Elam has been approved for will be administration on Today, Possible discharge patient home tomorrow if tolerating diet and condition to be improving and stable Instructions / Follow-Up you have Crohn's disease flare up I am giving you tapering dose of oral prednisone for total [address] Elia, Stelara has been approved for will be administration on Today, you just need to have it as instructed. low residual diet - you need to follow up with your primary care physician in 1 week, - take medication as instructed, never overdose or any misuse, or take with alcohol, because misuse of medicine may cause organ damage or , call your primary care physician if have questions of medicaitons. - call your primary care physician OR go to local emergency room if has any fever/chill, chest pain, shortness of breathing, nausea/vomiting/abdominal pain , facial droop/slurry speech/local weakness, or if has any questions. - fall precaution - diet as instructed - you need to follow up with your subspecialist Total Time Spent: Less than 30 minutes This includes examination of the patient, discharge planning, medication reconciliation, and communication with other providers. Discharge Instructions Please refer to the electronic Patient Visit Report (Discharge Instructions) for additional information. Additional Copies To Yusef Rodrigez M.D.
== END 2017-04-27 14:02 | disposition home or self-care (01) | DRG 386 ==
LOC: C.EDB 08:51 → ENRESERV 15:45 → C.MS2W 16:22
PROVIDERS: ADMIT Internal Medicine; ATTEND Hospitalist
DX: K50.113 Crohn's disease of large intestine with fistula (principal); K29.70 Gastritis, unspecified, without bleeding; R79.89 Other specified abnormal findings of blood chemistry; D72.829 Elevated white blood cell count, unspecified; R70.0 Elevated erythrocyte sedimentation rate; R79.82 Elevated C-reactive protein (CRP); E87.8 Other disorders of electrolyte and fluid balance, not elsewhere classified; E55.9 Vitamin D deficiency, unspecified; Z79.3 Long term (current) use of hormonal contraceptives; Z79.899 Other long term (current) drug therapy; Z88.0 Allergy status to penicillin; Z88.1 Allergy status to other antibiotic agents; Z88.2 Allergy status to sulfonamides

== ENCOUNTER → 2017-05-15 | Outpatient (CLI) | payer BC ==
[~2017-05-15] MED LIST: AZAT50TA17 PO; BCPILLS PO; OPTIRAY 320 IV PRN; VTMD1000 PO
--- NOTE | 2017-05-15 12:46 | DIAGNOSTIC IMAGING REPORT ---
ABD/PELVIS IV AND ORAL CONT CLINICAL HISTORY: 32 years-old Female presenting with CROHN'S DISEASE. TECHNIQUE: Multidetector CT of the abdomen and pelvis was performed after the administration of oral and intravenous contrast. IV contrast: 120 mL of Optiray 320. A dose lowering technique was used consistent with the principles of ALARA (as low as reasonably achievable). COMPARISON: 04/25/2017. CT DOSE (mGy.cm): The estimated cumulative dose is 257.96 mGy.cm. FINDINGS: Sanding Machine Tender topogram: Unremarkable. Lung bases: Lungs and pleural spaces clear. Normal heart size. No pericardial or pleural effusion. Liver: Normal morphology. No liver lesion. Patent hepatic vasculature. Biliary: No intrahepatic or extrahepatic biliary ductal dilatation. Normal gallbladder. Pancreas: Normal. Spleen: Normal. Adrenal glands: Normal. Kidneys and ureters: Well-defined hypodensity in the left kidney likely simple cyst. No nephrolithiasis. No hydronephrosis. Ureters normal. Bladder: Incompletely evaluated secondary to underdistention. Pelvic organs: Uterus and ovaries normal. Bowel: Oral contrast has transited to the mid to distal transverse colon. No bowel obstruction. Wall thickening of the terminal ileum measures up to 6.5 mm similar to prior exam. The involved length of bowel measures approximately 5 cm extending from the ileocecal valve proximally. Interval decrease in surrounding inflammatory change. The previously noted sinus tract emanating from the terminal ileum is again noted, which may bifurcate having an anterior and posterior component (series 3 image 293). The superior component tracks further and contains a greater amount of fluid (series 3 image 291). This tract may also extend into an adjacent loop of small bowel (series 3 image 279. No new sites of inflammation. Peritoneal cavity: No free fluid or intraperitoneal gas. No abscess. Lymph nodes: No enlarged lymph nodes in the abdomen or pelvis. Vasculature: Aorta and IVC patent and normal in caliber. Abdominal wall: Normal. Musculoskeletal: Normal. IMPRESSION: 1. Significant interval decrease in inflammatory change in the right lower quadrant associated with the terminal ileum compatible with resolving active inflammation. Interval evolution of the associated penetrating disease into the right lower quadrant mesentery with a bifid sinus tract. 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 No abscess or other sites of disease. Electronically signed by: Freeman Frances M.D. 05/15/2017 12:45 PM Dictated Date/Time: 05/15/2017 12:37 PM
== END | disposition home or self-care (01) ==
LOC: C.CTS 10:27
PROVIDERS: ATTEND Internal Medicine Gastroenterology
DX: K50.00 Crohn's disease of small intestine without complications (principal)

== ENCOUNTER → 2017-06-22 | Outpatient (CLI) | payer BC ==
--- NOTE | 2017-06-22 16:23 | DIAGNOSTIC IMAGING REPORT ---
ABD/PELVIS IV AND ORAL CONT CLINICAL HISTORY: 32 years-old Female presenting with Crohn's disease. TECHNIQUE: Multidetector CT of the abdomen and pelvis was performed after the administration of oral and intravenous contrast. IV contrast: None. A dose lowering technique was used consistent with the principles of ALARA (as low as reasonably achievable). COMPARISON: 05/15/2017. CT DOSE (mGy.cm): The estimated cumulative dose is 280.79 mGy.cm. 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 Lung bases: Minimal basilar opacities, likely atelectasis. Normal heart size. No pericardial or pleural effusion. Liver: Normal morphology. Irregular hypodense lesion in segment 3 likely represents a benign hemangioma and is unchanged from prior. Patent hepatic vasculature. Biliary: No intrahepatic or extrahepatic biliary ductal dilatation. Normal gallbladder. Pancreas: Normal. Spleen: Normal. Adrenal glands: Normal. Kidneys and ureters: Well-defined hypodensity in the left kidney likely cyst. No nephrolithiasis. No hydronephrosis. Bladder: Incompletely evaluated secondary to underdistention. Pelvic organs: Uterus and ovaries normal. Bowel: Mild stool burden throughout normal caliber colon. No colonic wall thickening. The terminal ileum demonstrates persistent significant wall thickening measuring up to 8 mm. Mild upstream small bowel distention measuring up to 2.7 cm in diameter. No convincing evidence of or high-grade partial or complete bowel obstruction. There is bifid penetrating sinus tracts arising from the abnormal terminal ileum. A tract arises from the superior portion of the mid terminal ileum and tracks into the mesentery to adjacent loop of bowel (series 3 image 306). This tract contains a greater amount of gas and fluid in comparison to prior. A tract arises from the superior portion of the proximal terminal ileum and terminates in the mesentery (series 3 image 324). No significant inflammatory changes in this region. Tethered appearance of the adjacent loops of bowel likely from adhesions. Peritoneal cavity: No free fluid or intraperitoneal gas. Lymph nodes: No enlarged lymph nodes in the abdomen or pelvis. Vasculature: Aorta and IVC patent and normal in caliber. Abdominal wall: Normal. Musculoskeletal: Normal. IMPRESSION: 1. 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 The fistula contains a greater amount of fluid and gas on the current exam. No significant inflammatory changes in this region. Wall thickening of the terminal ileum may be causing a partial low-grade bowel obstruction evidenced by upstream distention. This could suggest a component of developing fibrostenotic disease. Electronically signed by: Freeman Frances M.D. 06/22/2017 4:22 PM Dictated Date/Time: 06/22/2017 4:08 PM
== END | disposition home or self-care (01) ==
LOC: C.CTS 14:44
PROVIDERS: ATTEND Internal Medicine Gastroenterology
DX: K50.80 Crohn's disease of both small and large intestine without complications (principal); R10.9 Unspecified abdominal pain